=== PATIENT | male | born 1980 | race Caucasian/White ===

== ENCOUNTER 2021-08-07 12:23 | Emergency (ER) | payer BC, SELFPAY ==
--- NOTE | ~2021-08-07 | XR_ITS ---
EXAMINATION: XR chest 2V DATE: 08/07/2021 13:22 INDICATION: Chest pain. Overdose. TECHNIQUE: Frontal and lateral views of the chest were obtained. COMPARISON: None. FINDINGS: The chest demonstrates clear lungs without pneumonia, pleural effusion, or pneumothorax. Th e heart size is normal. IMPRESSION: 1. No acute cardiopulmonary disease. Reviewed, dictated and finalized at location A. [facility]
--- NOTE | 2021-08-07 12:28 | ECG_ITS ---
Measurements Intervals [place] Rate: 111 P: 25 [place]: 147 QRS: 55 QRSD: 90 T: 38 QT: 333 QTc: 454 Interpretive Statements SINUS TACHYCARDIA BASELINE ARTIFACT- V1 MINIMAL Q WAVES- INF/LAT LEADS ABNORMAL ECG Electronically Signed On 08-07-2021 16:11:[address] [employer]PER[employer] by Samy Kothari D.O.
[2021-08-07 12:30] VITALS: BP 148/76; PULSE 111; RESP 16; TEMP 37.4; O2SAT 99
[2021-08-07 12:54] LABS: Basophils Percent Auto 0.2 % (0.2-1.2); Eosinophils Percent Auto 0.3 % (0-4.4); Hematocrit 43.5 % (42.0-52.0); Hemoglobin 15.3 g/dL (14.0-18.0); Immature Granulocyte Absolute 0.03 K/mm3 (0.00-0.031); Immature Granulocyte Percent A 0.3 % (0-0.5); Lymphocytes Absolute Auto 1.25 K/mm3 (0.9-3.2); Lymphocytes Percent Auto 11.7 % (18.3-44.2); Mean Corpuscular HGB Conc 35.2 g/dl (32-36); Mean Corpuscular Hemoglobin 31.7 pg (26-34); Mean Corpuscular Volume 90.2 fl (80-100); Mean Platelet Volume 10.2 fl (7.4-10.4); Monocytes Percent Auto 9.2 % (2.6-8.5); Neutrophils Absolute Auto 8.3 K/mm3 (1.3-6.7); Neutrophils Percent Auto 78.3 % (45.5-73.1); Platelet Count Result 220 k/mm3 (150-375); Red Blood Count 4.82 M/mm3 (4.6-6.20); Red Cell Distribution Width 12.9 % (11.5-14.5); White Blood Count 10.7 K/mm3 (4.5-10.0)
[2021-08-07 13:06] LABS: Partial Thromboplastin Time 23.7 SECONDS (22.3-36.8); Prothrombin Time 12.9 Seconds (11.1-14.7)
[2021-08-07 13:10] LABS: Alanine Aminotransferase 30 U/L (4-50); Albumin Level 4.9 g/dL (3.5-5.1); Alkaline Phosphatase 57 U/L (38-126); Anion Gap 12 mmol/L (8-16); Aspartate Amino Transferase 29 U/L (17-59); Blood Urea Nitrogen 13 mg/dL (9-20); Calcium 9.4 mg/dL (8.4-10.2); Carbon Dioxide 21 mmol/L (22-30); Chloride 102 mmol/L (98-107); Estimated CRCL calculation 103 ml/min; Estimated Glomerular Filt Rate > 60; Glucose 104 mg/dL (65-110); Lipase 95 U/L (23-300); Potassium 3.6 mmol/L (3.4-5.0); Sodium 135 mmol/L (137-145)
[2021-08-07 13:20] LABS: Troponin I < 0.012 ng/mL (0.000-0.034)
--- NOTE | 2021-08-07 13:50 | ED.GENADULT ---
HPI - General Adult General Chief complaint: Overdose Stated complaint: Cocaine Overdose Time Seen by Provider: 08/07/21 13:50 Source: patient and RN notes reviewed Mode of arrival: ambulatory Limitations: no limitations History of Present Illness HPI narrative: Patient 40 years old white male came to the emergency room feeling like going to , palpitation, chest discomfort and the feeling of going to pass out. Started at 11 AM this morning, patient had a reaction pills, called rhino last night, been using cocaine all night long. Patient reports last cocaine use was 15 years ago. the Reason of using cocaine last night is the opportunity. Patient was in a hotel, drove himself to the emergency room. Currently patient feeling tired, denying any chest pain, shortness of breath, headache, palpitation, nausea, vomiting, diarrhea, or constipation. Patient does not smoke and drinks occasionally, does not use marijuana or other drugs. Related Data Home Medications Medication Instructions Recorded Confirmed No Home Medications 08/07/21 08/07/21 Allergies Allergy/AdvReac Type Severity Reaction Status Date / Time No Known Allergies Allergy Verified 08/07/21 14:05 Review of Systems Review of Systems: CONSTITUTIONAL: Denies fever, chills, or sweats. EYES: Denies visual changes, redness, or discharge. ENT: Denies rhinorrhea, congestion, sore throat, or otalgia. CARDIOVASCULAR: Denies chest pain, palpitations, or edema. RESPIRATORY: Denies cough or dyspnea. GASTROINTESTINAL: Denies abdominal pain, nausea, vomiting, or diarrhea. GENITOURINARY: Denies dysuria or hematuria. SKIN: Denies rash or itching. MUSCULOSKELETAL: Denies back pain, joint pain, or myalgia. NEUROLOGIC: Denies headache, numbness, or weakness. PSYCHIATRIC: Denies anxiety or depression. Exam Narrative: General appearance: Well-developed, well-nourished Skin: Normal color Head: Normocephalic, nontraumatic Eyes: Clear conjunctiva ENT: Oropharynx normal, ears normal, nose normal Neck: Supple, nontender Chest and respiratory: Airway patent, no respiratory distress, no accessory muscle use Heart: Regular rate/rhythm Abdomen: Soft, nontender, no organomegaly, quiet bowel sounds Vascular: Normal peripheral pulses, normal capillary refill. Musculoskeletal: Normal range of motion, nontender back Neurologic: Alert and oriented ?3, E[employer] is normal as tested, no gross motor deficit Course Course Emergency Course: Improving Vital Signs Vital signs: Vital Signs Temperature 37.4 C 08/07/21 12:30 Pulse Rate 111 H 08/07/21 12:30 Respiratory Rate 16 08/07/21 12:30 Blood Pressure 148/76 H 08/07/21 12:30 Pulse Oximetry 99 08/07/21 12:30 Temperature 37.4 C 08/07/21 12:30 Pulse Rate 95 08/07/21 15:02 Respiratory Rate 16 08/07/21 15:02 Blood Pressure 132/81 08/07/21 15:02 Pulse Oximetry 98 08/07/21 15:02 Medical Decision Making MDM Narrative Medical decision making narrative: Cocaine abuse Differential Diagnosis Differential Diagnosis: Myocardial infarction, palpitation, hypertension, tachyarrhythmia Vital Signs Vital Signs: Vital Signs Temperature 37.4 C 08/07/21 12:30 Pulse Rate 111 H 08/07/21 12:30 Respiratory Rate 16 08/07/21 12:30 Blood Pressure 148/76 H 08/07/21 12:30 Pulse Oximetry 99 08/07/21 12:30 Temperature 37.4 C 08/07/21 12:30 Pulse Rate 95 08/07/21 15:02 Respiratory Rate 16 08/07/21 15:02 Blood Pressure 132/81 08/07/21 15:02 Pulse Oximetry 98 08/07/21 15:02 Lab Data Result diagrams: 08/07/21 12:47 08/07/21 12:47 Labs: Lab Results 08/07/21 08/07/21 08/07/21 Range/Units
[2021-08-07 14:03] VITALS: BP 123/69; PULSE 102; RESP 20; O2SAT 97
[2021-08-07 14:18] LABS: Alveolar/Arterial O2 Gradient 29.3 mmHg; Device ROOM AIR; Fractional Inspired Oxygen 21 %; HCO3 ABG 22.1 mEq/l (22.0-26.0); Modified Allen's Test Pass; Oxygen Saturation ABG 95.6 % (95.0-100.0); Oxyhemoglobin 94.6 % THb (90.0-100.0); PO2 ABG 77.3 mmHg (80.0-100.0); PO2 FiO2 Ratio Arterial Blood 3.68 %; Site Drawn LEFT RADIAL; pH ABG 7.406 (7.350-7.450)
[2021-08-07 14:20] LABS: Ethanol < 10 mg/dL (<10)
[2021-08-07 14:33] LABS: Creatine Kinase 121 U/L (55-170)
[2021-08-07] MEDS: ASPIRIN 81 MG CHEWABLE TABLET 324 MG PO (14:44)
[2021-08-07 14:45] LABS: Add Urine Microscopic? YES; Appearance Urine Clear (Clear); Bilirubin Urine Negative (Negative); Blood Urine 1+ (Negative); Color Urine Straw (Yellow); Glucose Urine UA Negative (Negative); Ketones Urine 1+ mg/dL (Negative); Leukocyte Esterase Ur Negative LEU/UL (Negative); Mucus Urine Rare /lpf; Nitrate Urine Negative (Negative); Protein Urine Negative (Negative); RBC Urine 0-2 /hpf (0-2); Specific Grav Ur 1.005 (1.001-1.035); Urobilinogen Urine Negative mg/dL (<2.0); WBC Urine 0-3 /hpf
[2021-08-07 15:02] VITALS: BP 132/81; PULSE 95; RESP 16; O2SAT 98
[2021-08-07 15:02] LABS: Amphetamine Screen Urine Negative (Negative); Barbiturate Screen Urine Negative (Negative); Benzodiazepines Screen Urine Negative (Negative); Cannabinoid Screen Urine Negative (Negative); Cocaine Screen Urine Positive (Negative); Methadone Screen Urine Negative (Negative); Opiate Screen Urine Negative (Negative); Phencyclidine Screen Urine Negative (Negative)
--- NOTE | 2021-08-07 16:01 | PC.NURSE ---
Refuses 3 hour troponin.
== END 2021-08-07 16:08 | disposition left against medical advice (07) ==
PROVIDERS: General Practice; Emergency Provider Emergency Medicine
DX: F14.10 Cocaine abuse, uncomplicated (principal)
CPT/HCPCS: 36415; 36600; 71046; 80053; 80307; 81001; 82550; 82805; 83690; 84484; 85025; 85610; 85730; 93005; 99284; A9270